=== PATIENT | female | born 1995 | race Caucasian/White ===

== ENCOUNTER 2016-10-22 15:10 | Emergency (ER) | payer BC ==
[~2016-10-22] VITALS: Ht 167.6 cm; Wt 132.6 kg
[~2016-10-22 15:10] MED LIST: IBUPROFEN800 MG PO; KEFLEX500 MG PO; TRI-SPRINTEC1 EACH PO
[2016-10-22] MEDS ORDERED: PRENATAL TABLE1 EAC3 PO (16:24)
[2016-10-22 17:37] LABS: INFLUENZA A VIRAL ANTIGEN NEGATIVE; INFLUENZA B VIRAL ANTIGEN NEGATIVE
[2016-10-22 17:46] LABS: ADD MIUA? YES; BILIRUBIN NEGATIVE; BLOOD NEGATIVE; COLOR YELLOW ((YELLOW)); GLUCOSE (STRIP) NEGATIVE; KETONES NEGATIVE; LEUKOCYTES TRACE; NITRITE NEGATIVE; PROTEIN (STRIP) NEGATIVE; SPECIFIC GRAVITY 1.009 (1.000-1.030); UROBILINOGEN 0.2 MG/DL (0.2-1.0)
[2016-10-22 18:34] LABS: EPITHELIAL CELLS 2+; RED BLOOD CELLS NONE SEEN /HPF (0-5); WHITE BLOOD CELLS 0-5 /HPF (0-5)
[2016-10-22 18:35] LABS: BACTERIA 1+; CASTS NONE SEEN /LPF; CRYSTALS NONE SEEN; MUCUS TRACE
[2016-10-22] MEDS ORDERED: RHINOCORT ALL8.43 ML BOTH NARES (19:28)
[2016-10-22 19:48] VITALS: BP 111/64
== END 2016-10-22 19:48 | disposition home or self-care (01) ==
LOC: RME 15:10 → EME 15:10 → RME 19:48
PROVIDERS: Physician Assistant
DX: J06.9 Acute upper respiratory infection, unspecified (principal); Z33.1 Pregnant state, incidental; Z3A.24 24 weeks gestation of pregnancy
CPT/HCPCS: 71020; 81003; 87502; 93005; 93970; 99281; 99284

== ENCOUNTER 2017-02-10 10:53 | Outpatient (CLI) | payer BC ==
[~2017-02-10 10:53] MED LIST changes: +PRENATAL TABLE1 EAC3 PO; +RHINOCORT ALL8.43 ML BOTH NARES
[2017-02-10 11:28] VITALS: BP 123/57
[2017-02-10 12:00] LABS: EOSINOPHIL COUNT 0.1 K/uL (0-0.3); HEMATOCRIT 35.1 % (36.0-46.0); IMMATURE GRANULOCYTE (%) 0.7 % (0.0-0.7); IMMATURE GRANULOCYTE COUNT 0.1 K/uL; INSTRUMENT ABS NEUTROPHIL CT 7.9 K/uL; LYMPHOCYTE COUNT 1.7 K/uL (1.0-2.8); MCH 27.7 PG (29.0-34.0); MCHC 32.5 G/DL (30.0-36.0); MCV 85.4 FL (83-99); MONOCYTE (%) 6.9 % (3-12); MONOCYTE COUNT 0.7 K/uL (0-0.8); NEUTROPHIL (%) 74.8 % (45-76); NEUTROPHIL COUNT 7.9 K/uL (1.8-6.4); PLATELET COUNT 192 K/uL (156-360); RBC DIS.WIDTH-CV 15.4 % (11.8-14.6); RBC DIS.WIDTH-SD 47.8 % (39-53); RED BLOOD COUNT 4.11 M/uL (3.80-5.20); WHITE BLOOD COUNT 10.5 K/uL (4.1-10.2)
[2017-02-10 12:43] LABS: ALKALINE PHOSPHATASE 215 IU/L (3-129); ANION GAP 10 MEQ/L (2-14); CHLORIDE 109 MEQ/L (99-109); GFR ESTIMATE (CALCULATED) > 59 mL/min/; GLUCOSE 88 mg/dL (70-99); LACTATE DEHYDROGENASE 134 IU/L (20-246); POTASSIUM 4.3 MEQ/L (3.7-5.4); SAMPLE HEMOLYSIS CHECK 0; SAMPLE ICTERIC CHECK 0; SAMPLE LIPEMIA CHECK 0; SODIUM 138 MEQ/L (136-147); TOTAL BILIRUBIN 0.2 MG/DL (0.0-1.0); UREA NITROGEN (BUN) 11 mg/dL (9-23); URIC ACID 6.4 mg/dL (3.1-9.2)
[2017-02-10 15:34] VITALS: BP 122/79
[2017-02-10 16:05] VITALS: BP 125/69
[2017-02-10 16:34] VITALS: BP 121/74
== END 2017-02-10 17:08 | disposition home or self-care (01) ==
LOC: LDRP-OP 10:53 → 2WEST 10:54
PROVIDERS: Advanced Practice Midwife; Obstetrics & Gynecology
DX: O26.893 Other specified pregnancy related conditions, third trimester (principal); R03.0 Elevated blood-pressure reading, without diagnosis of hypertension; O99.213 Obesity complicating pregnancy, third trimester; E66.8 Other obesity; Z3A.40 40 weeks gestation of pregnancy; O23.43 Unspecified infection of urinary tract in pregnancy, third trimester
CPT/HCPCS: 59025; 76818; 80053; 82570; 83615; 84156; 84550; 85025; G0378

== ENCOUNTER 2017-02-17 07:42 | Inpatient (IN) | payer BC, OTHER ==
[~2017-02-17] VITALS: Ht 170.2 cm; Wt 145.0 kg
[2017-02-17] VITALS (23 sets, daily range): BP systolic 91–141; BP diastolic 52–77
[2017-02-17 09:39] LABS: EOSINOPHIL (%) 1.2 % (0-5); EOSINOPHIL COUNT 0.1 K/uL (0-0.3); HEMATOCRIT 36.2 % (36.0-46.0); IMMATURE GRANULOCYTE (%) 0.6 % (0.0-0.7); IMMATURE GRANULOCYTE COUNT 0.1 K/uL; INSTRUMENT ABS NEUTROPHIL CT 7.4 K/uL; LYMPHOCYTE COUNT 2.1 K/uL (1.0-2.8); MCH 27.8 PG (29.0-34.0); MCHC 32.6 G/DL (30.0-36.0); MCV 85.2 FL (83-99); MEAN PLAT.VOLUME 11.7 uM^3 (9.5-12.4); MONOCYTE (%) 8.1 % (3-12); MONOCYTE COUNT 0.9 K/uL (0-0.8); NEUTROPHIL (%) 70.5 % (45-76); NEUTROPHIL COUNT 7.4 K/uL (1.8-6.4); PLATELET COUNT 205 K/uL (156-360); RBC DIS.WIDTH-CV 15.6 % (11.8-14.6); RBC DIS.WIDTH-SD 47.4 % (39-53); RED BLOOD COUNT 4.25 M/uL (3.80-5.20); WHITE BLOOD COUNT 10.5 K/uL (4.1-10.2)
[2017-02-18] VITALS (16 sets, daily range): BP systolic 78–136; BP diastolic 42–75
[2017-02-18 06:30] LABS: EOSINOPHIL (%) 0 % (0-5); IMMATURE GRANULOCYTE (%) 0.4 % (0.0-0.7); IMMATURE GRANULOCYTE COUNT 0.1 K/uL; INSTRUMENT ABS NEUTROPHIL CT 19.3 K/uL; LYMPHOCYTE COUNT 1.3 K/uL (1.0-2.8); MCH 27.9 PG (29.0-34.0); MCHC 32.8 G/DL (30.0-36.0); MCV 85.3 FL (83-99); MEAN PLAT.VOLUME 11.9 uM^3 (9.5-12.4); MONOCYTE (%) 7.3 % (3-12); MONOCYTE COUNT 1.6 K/uL (0-0.8); NEUTROPHIL (%) 86.3 % (45-76); NEUTROPHIL COUNT 19.3 K/uL (1.8-6.4); PLATELET COUNT 189 K/uL (156-360); RBC DIS.WIDTH-CV 15.6 % (11.8-14.6); RBC DIS.WIDTH-SD 48.2 % (39-53)
[2017-02-18 06:36] LABS: WHITE BLOOD COUNT 22.4 K/uL (4.1-10.2)
[2017-02-19 06:36] LABS: EOSINOPHIL (%) 1.4 % (0-5); EOSINOPHIL COUNT 0.2 K/uL (0-0.3); HEMATOCRIT 24.9 % (36.0-46.0); IMMATURE GRANULOCYTE (%) 0.8 % (0.0-0.7); IMMATURE GRANULOCYTE COUNT 0.1 K/uL; INSTRUMENT ABS NEUTROPHIL CT 10.5 K/uL; LYMPHOCYTE COUNT 3.5 K/uL (1.0-2.8); MCH 27.9 PG (29.0-34.0); MCHC 32.1 G/DL (30.0-36.0); MCV 86.8 FL (83-99); MEAN PLAT.VOLUME 11.3 uM^3 (9.5-12.4); MONOCYTE (%) 6.7 % (3-12); NEUTROPHIL COUNT 10.5 K/uL (1.8-6.4); PLATELET COUNT 157 K/uL (156-360); RBC DIS.WIDTH-CV 15.8 % (11.8-14.6); RBC DIS.WIDTH-SD 49.3 % (39-53); RED BLOOD COUNT 2.87 M/uL (3.80-5.20); WHITE BLOOD COUNT 15.5 K/uL (4.1-10.2)
[2017-02-19 07:21] VITALS: BP 115/72
[2017-02-19] MEDS ORDERED: IBUPROFEN800 MG PO (09:18)
[2017-02-19] MEDS ORDERED: CAMILA0.35 MG PO (09:19)
[2017-02-19] MEDS ORDERED: DOCUSATE SODIU100 MG PO (09:19)
[2017-02-19] MEDS ORDERED: HEMOCYTE324 MG PO (09:19)
[2017-02-19 15:15] VITALS: BP 126/73
[2017-02-19 23:17] VITALS: BP 144/66
[2017-02-19 23:19] VITALS: BP 125/68
[2017-02-20 07:09] VITALS: BP 132/60
[2017-02-20 12:33] LABS: EOSINOPHIL (%) 3.1 % (0-5); EOSINOPHIL COUNT 0.4 K/uL (0-0.3); HEMATOCRIT 23.9 % (36.0-46.0); IMMATURE GRANULOCYTE (%) 1.2 % (0.0-0.7); IMMATURE GRANULOCYTE COUNT 0.1 K/uL; INSTRUMENT ABS NEUTROPHIL CT 7.9 K/uL; LYMPHOCYTE COUNT 2.6 K/uL (1.0-2.8); MCHC 31.8 G/DL (30.0-36.0); MCV 88.2 FL (83-99); MEAN PLAT.VOLUME 11.4 uM^3 (9.5-12.4); MONOCYTE (%) 6.1 % (3-12); MONOCYTE COUNT 0.7 K/uL (0-0.8); NEUTROPHIL (%) 67.1 % (45-76); NEUTROPHIL COUNT 7.9 K/uL (1.8-6.4); PLATELET COUNT 186 K/uL (156-360); RBC DIS.WIDTH-SD 50.4 % (39-53); RED BLOOD COUNT 2.71 M/uL (3.80-5.20); WHITE BLOOD COUNT 11.8 K/uL (4.1-10.2)
== END 2017-02-20 13:45 | disposition home or self-care (01) | DRG 774 ==
LOC: LDRP-OP 07:42 → 2WEST 07:43 → LDRP-OP 03-13 18:36
PROVIDERS: Advanced Practice Midwife; Obstetrics & Gynecology
PROC: 00HU33Z Insertion of Infusion Device into Spinal Canal, Percutaneous Approach (ICD-10-PCS; principal; 2017-02-18)
PROC: 10E0XZZ Delivery of Products of Conception, External Approach (ICD-10-PCS; principal; 2017-02-18)
PROC: 0U7C7ZZ Dilation of Cervix, Via Natural or Artificial Opening (ICD-10-PCS; principal; 2017-02-18)
PROC: 3E0R3CZ (ICD-10-PCS; principal; 2017-02-18)
DX: O48.0 Post-term pregnancy (principal); O72.1 Other immediate postpartum hemorrhage; E66.01 Morbid (severe) obesity due to excess calories; O99.214 Obesity complicating childbirth; Z3A.41 41 weeks gestation of pregnancy; Z37.0 Single live birth
CPT/HCPCS: 85025; C1755; G0378; J3010; J7120

== ENCOUNTER 2017-05-12 05:29 | Day surgery (SDC) | payer BC, OTHER ==
[~2017-05-12] VITALS: Ht 170.2 cm; Wt 127.0 kg
[~2017-05-12 05:29] MED LIST changes: +CAMILA0.35 MG PO; +DOCUSATE SODIU100 MG PO; +HEMOCYTE324 MG PO; +MIRENA52 MG IY
[2017-05-12 06:02] VITALS: BP 111/68
[2017-05-12] MEDS ORDERED: NORCO 5/3251 TABLET PO (08:51)
[2017-05-12 10:44] VITALS: BP 121/66
[2017-05-12 11:40] VITALS: BP 111/70
== END 2017-05-12 12:06 | disposition home or self-care (01) ==
LOC: SDC
PROC: 0FT44ZZ Resection of Gallbladder, Percutaneous Endoscopic Approach (ICD-10-PCS; principal; 2017-05-12)
DX: K80.10 Calculus of gallbladder with chronic cholecystitis without obstruction (principal); E66.01 Morbid (severe) obesity due to excess calories; Z68.41 Body mass index [BMI] 40.0-44.9, adult
CPT/HCPCS: 88304; J0131; J0330; J1100; J1170; J1885; J2250; J2405; J2710; J2765; J3010